=== PATIENT | female | born 1985 | race Caucasian/White ===

== ENCOUNTER 2017-12-26 19:00 | Emergency (ER) | payer BC, OTHER ==
--- NOTE | 2017-12-26 19:13 | PDOC ---
History of Present Illness - General History Source: Patient Exam Limitations: No Limitations - History of Present Illness Initial Comments: 12/26/17 19:44 The patient is a 32 year old female with a significant PMH of migraines who presents to the emergency department with a headache for 1 day. The patient reports that she went out for food and drinks last night and woke up this morning with a constant headache this morning. The patient reports that she has been experiencing associated nausea and vomiting with her headache. The patient states that she has been experiencing her vomiting episodes all day. The patient reports that she drank coffee this morning as well as advil. She reports that it provided no relief to her headache or vomiting. The patient reports the end of her menstrual cycle 1 week ago. The patient denies any sick contact. She denies any chest pain, shortness of breath, dizziness. She denies fever, chills, diarrhea, constipation or urinary symptoms. PAST MEDICAL HISTORY: migraines PAST SURGICAL HISTORY: no significant history FAMILY HISTORY: no pertinent history SOCIAL HISTORY: Pt lives with family and is employed. MEDICATIONS: reviewed ALLERGIES: As per nursing notes Adult ROS General: No fevers or chills, no weakness, no weight loss HEENT: No change in vision. No sore throat,. No ear pain CardioVascular: No chest pain or shortness of breath Respiratory:No cough, or wheezing. Gastrointestinal: (+) nausea, vomiting. no diarrhea or constipation, No rectal bleeding Genitourinary: No dysuria, hematuria, or frequency Musculoskeletal: No joint or muscle pain or swelling Neurologic: (+)headache. No vertigo, dizziness or loss of consciousness Psychiatric: nor depression Skin: No rashes or easy bruising Endocrine: no increased thirst or abnormal weight change Allergic: no skin or latex allergy All other systems reviewed and normal Basic PE General: Well-nourished well-developed individual, no acute distress HEENT: Throat: Normal, tonsils normal, no erythema or exudate Neck: Supple, no meningeal signs, no lymphadenopathy Eyes::Pupils equal reactive and round, extraocular motion intact Chest: Nontender to palpation Cardiac: S1-S2 normal, regular rate and rhythm, no murmurs rubs or gallops Respiratory: Lungs clear to auscultation bilateral Abdomen: Soft, nondistended, normal bowel sounds, nontender to palpation diffusely Extremities: Warm, dry, no cyanosis, clubbing, or edema Skin: No rashes Neuro: Alert and oriented x3, nonfocal exam, grossly intact, normal gait Psych: Normal mood and affect <Teri Guzman - Last Filed: 12/26/17 21:14> - General History Source: Patient Exam Limitations: No Limitations - History of Present Illness Initial Comments: A portion of this note was documented by scribe services under my direction. I have reviewed the details of the note, within reason, and agree with the documentation. The case summary and management plan written by me. Assessment and plan: This is a 32-year-old female who comes in complaining of a headache times one day. Patient is also complaining of vomiting. It is unclear whether the 2 are related or not. Patient has a history of migraines with which she had some nausea but not usually vomiting. Patient said this is different than her migraine headache. Patient did take Advil for the pain but said she was unable to keep it in and hasn't vomited. Patient otherwise denies any other recent illnesses including fevers. Patient denies any neck pain or neck stiffness. Patient's significant other is with her there is been change in her mental status. She denies any neurological complaints. CT scan of the head shows an increased density in the area of the upper brainstem. She should be re-evaluated with repeat CT or MRI to rule out pathology versus artifact. A repeat CAT scan of the head with IV contrast shows no abnormal enhancement in the area of the upper brainstem normal CAT scan Patient feels better post some pain medication and IV fluids and antiemetics. Patient discharged home will follow-up with her primary care doctor 12/26/17 23:32 <Jon Abrams I - Last Filed: 12/26/17 23:34> - General Chief Complaint: Headache Stated Complaint: HEADACHE Time Seen by Provider: 12/26/17 19:09 Past History <Teri Guzman - Last Filed: 12/26/17 21:14> - Past Medical History COPD: No HTN: Yes Other medical history: MIGRAINE HEADACHES - Suicide/Smoking/Psychosocial Hx Smoking History: Never smoked Information on smoking cessation initiated: No Hx Alcohol Use: (occasional) Substance Use Type: None <Jon Abrams I - Last Filed: 12/26/17 23:34> - Past Medical History Allergies/Adverse Reactions: Allergies Allergy/AdvReac Type Severity Reaction Status Date / Time metoclopramide [From Reglan] AdvReac agitation Verified 12/26/17 19:40 Home Medications: Ambulatory Orders Lisinopril 5 mg PO DAILY 12/26/17 *Physical Exam - Vital Signs Last Vital Signs Temp Pulse Resp BP Pulse Ox 99.1 F 102 H 20 146/107 100 12/26/17 19:00 12/26/17 19:00 12/26/17 19:00 12/26/17 19:00 12/26/17 19:00 <Teri Guzman - Last Filed: 12/26/17 21:14> - Vital Signs Last Vital Signs Temp Pulse Resp BP Pulse Ox 99.1 F 102 H 20 146/107 100 12/26/17 19:00 12/26/17 19:00 12/26/17 19:00 12/26/17 19:00 12/26/17 19:00 <Jon Abrams I - Last Filed: 12/26/17 23:34> ED Treatment Course - LABORATORY CBC & Chemistry Diagram: 12/26/17 19:35 12/26/17 19:35 - ADDITIONAL ORDERS Additional order review: Laboratory Results 12/26/17 19:20 Urine HCG, Qual Negative <Teri Guzman - Last Filed: 12/26/17 21:14> - LABORATORY CBC & Chemistry Diagram: 12/26/17 19:35 12/26/17 19:35 <Jon Abrams I - Last Filed: 12/26/17 23:34> *DC/Admit/Observation/Transfer - Attestations Scribe Attestion: 12/26/17 19:44 Documentation prepared by Teri Guzman, acting as medical laboratory technician for Jon Abrams MD. <Teri Guzman - Last Filed: 12/26/17 21:14> - Discharge Dispostion Decision to Admit order: No <Jon Abrams I - Last Filed: 12/26/17 23:34> Diagnosis at time of Disposition: Headache Qualifiers: Headache type: unspecified Headache chronicity pattern: acute headache Intractability: not intractable Qualified Code(s): R51 - Headache Vomiting Qualifiers: Vomiting type: unspecified Vomiting Intractability: non-intractable - Discharge Dispostion Disposition: HOME Condition at time of disposition: Stable - Patient Instructions Additional Instructions: Tylenol or Motrin as needed for pain. Return to the emergency department immediately with ANY new, persistent or worsening symptoms. Continue any medications as previously prescribed by your physician. You should follow up with your primary doctor as soon as possible regarding today's emergency department visit. . Please make sure your doctor reviews the results of your emergency evaluation. Thank you for coming to the Emergency Department today for your care. It was a pleasure to see you today. Please note that your evaluation is INCOMPLETE until you follow-up with your doctor.
[2017-12-26 19:14] VITALS: TEMP 99.1; BMI 28.3
[2017-12-26] MEDS ORDERED: METOCLOPRAMIDE HCL INJECTION 10 MG/2 ML VIAL IVPUSH ONE (19:19)
[2017-12-26] MEDS ORDERED: SODIUM CHLORIDE 1,000 ML IV ONE (19:21)
[2017-12-26] MEDS ORDERED: ONDANSETRON 4 MG/2 ML VIAL ONE (19:45)
[2017-12-26 19:56] LABS: BASO % 0.7 % (0-2.0); EOS % 0.2 % (0-4.5); HEMATOCRIT 37.3 % (32.4-45.2); LYMPH % 13.2 % (8-40); MCH 30.2 pg (25.7-33.7); MCHC 34.8 g/dl (32.0-36.0); MEAN CELL VOLUME 86.9 fl (80-96); MEAN PLT VOLUME 7.8 fl (7.5-11.1); MONO % 5.8 % (3.8-10.2); NEUT % 80.1 % (42.8-82.8); PLATELET COUNT 335 K/MM3 (134-434); RDW 12.1 % (11.6-15.6); WHITE BLOOD COUNT 9.6 K/mm3 (4.0-10.8)
[2017-12-26 20:04] LABS: ALBUMIN 4.3 g/dl (3.5-5.0); ALK PHOS 32 U/L (32-92); ANION GAP 8 (8-16); BILIRUBIN,TOTAL 0.2 mg/dl (0.2-1.0); BLOOD UREA NITROGEN 15 mg/dl (7-18); CALCIUM 9.8 mg/dl (8.4-10.2); CHLORIDE 100 mmol/L (98-107); CO2 26 mmol/L (22-28); CREATININE 0.6 mg/dl (0.6-1.3); GLUCOSE,RANDOM 132 mg/dl (74-106); POTASSIUM 3.5 mmol/L (3.5-5.1); SGOT/AST 18 U/L (10-42); SGPT/ALT 16 U/L (10-40); SODIUM 134 mmol/L (136-145); TOT PROT 7.4 g/dl (6.4-8.3)
[2017-12-26] MEDS ORDERED: ONDANSETRON 4 MG/2 ML VIAL IVPUSH ONE (20:09)
[2017-12-26 20:54] VITALS: BP 125/88; PULSE 87
[2017-12-26] MEDS ORDERED: morphine CARPU-JECT 4 MG/1 ML DISP.SYRIN IVPUSH ONE (21:07)
[2017-12-26] MEDS ORDERED: morphine SULFATE 4 MG/ML VIAL ONE (21:08)
[2017-12-26] MEDS ORDERED: KETOROLAC TROMETHAMINE 30 MG/1 ML VIAL IVPUSH ONE (21:14)
[2017-12-26] MEDS ORDERED: KETOROLAC TROMETHAMINE 30 MG/1 ML VIAL ONE (21:15)
== END 2017-12-26 23:37 | disposition home or self-care (01) ==
LOC: FER 19:00
PROC: 3E0333Z Introduction of Anti-inflammatory into Peripheral Vein, Percutaneous Approach (ICD-10-PCS; principal; 2017-12-26)
PROC: 3E033GC Introduction of Other Therapeutic Substance into Peripheral Vein, Percutaneous Approach (ICD-10-PCS; 2017-12-26)
PROC: 3E0337Z Introduction of Electrolytic and Water Balance Substance into Peripheral Vein, Percutaneous Approach (ICD-10-PCS; 2017-12-26)
DX: R51 Headache (principal); I10 Essential (primary) hypertension
CPT/HCPCS: 36415; 70450-TC; 70460-TC; 80053; 84703; 85025; 99283-25; J7030

== ENCOUNTER 2018-04-03 10:45 | Emergency (ER) | payer BC ==
--- NOTE | 2018-04-03 10:49 | PDOC ---
History of Present Illness - General Chief Complaint: Pain Stated Complaint: DIFFICULTY SWALLOWING 1 WEEK ALSO Time Seen by Provider: 04/03/18 10:49 - History of Present Illness Initial Comments: 04/03/18 11:55 The patient is a 32 year old female with a history of HTN who presents for evaluation of chest tightness and swallowing issues. The patient reports a 1 week history of a strange sensation when swallowing and increased urge to swallow that she describes as excess mucus in her throat. She also noted some intermittent upper chest tightness as well. She was evaluated by her primary care provider 2 days ago and was referred to an ENT specialist, but has been unable to schedule an appointment yet and states that she is feeling more anxious about the sensation in her throat. She notes that she does not have difficulty swallowing, hoarseness, foul breath and otherwise denies fevers, chills, SOB, nausea, vomiting, abdominal pain, or changes with urination or bowel movements. Past History - Past Medical History Allergies/Adverse Reactions: Allergies Allergy/AdvReac Type Severity Reaction Status Date / Time metoclopramide [From Reglan] AdvReac agitation Verified 04/03/18 10:56 Home Medications: Ambulatory Orders Lisinopril 5 mg PO DAILY 12/26/17 COPD: No HTN: Yes - Suicide/Smoking/Psychosocial Hx Smoking History: Never smoked Hx Alcohol Use: (occasional) Substance Use Type: None Review of Systems - Review of Systems Comments:: 04/03/18 11:59 Constitutional: No fevers, chills, fatigue, malaise HEENT: Swallowing issues. No Rhinorrhea, nasal congestion, visual changes Cardiovascular: Chest tightness. No syncope, palpitations, lightheadedness Respiratory: No Cough, SOB, Hemoptysis, Gastrointestinal: No Abdominal pain, Nausea, Vomiting, Constipation, Diarrhea, Melena Genitourinary: No Dysuria, Frequency, Urgency, Hesitancy, Hematuria, Flank pain Musculoskeletal: No Myalgia, arthralgia Skin: No rashes, itching, bruising, pallor Neurologic: No Headache, Dizziness, Numbness, Weakness, or Tingling Psychiatric: No Hallucinations. No SI or HI *Physical Exam - Physical Exam Comments: 04/03/18 12:00 General Appearance: Nourished. No Apparent Distress HEENT: No Pharyngeal Erythema, Tonsillar Exudate, Tonsillar Erythema Neck: No Cervical Lymphadenopathy Respiratory/Chest: Lungs Clear, Normal Breath Sounds. No Crackles, Rales, Rhonchi, Wheezing Cardiovascular: Regular Rhythm, Regular Rate. No Murmur, Gallops, Rubs Gastrointestinal/Abdominal: Normal Bowel Sounds, Soft. No Guarding, Rebound, Tenderness Musculoskeletal: No CVA Tenderness Extremity: Normal Capillary Refill Integumentary: Normal Color, Dry, Warm Neurologic: Fully Oriented, Alert, Normal Mood/Affect, Normal Response, Medical Decision Making - Medical Decision Making 04/03/18 12:01 The patient is a 32 year old female with a history of HTN who presents for evaluation of chest tightness and swallowing issues. Given the patient's history and physical exam, we will obtain plain films of the patient's chest and neck soft tissues to evaluate further. We will continue to monitor and reassess while here in the ED. 04/03/18 12:16 Plain films are unremarkable. The patient appears clinically well on exam. We are comfortable discharging the patient home with ENT follow up. We discussed the results, plan, and return precautions with the patient who voiced understanding and is agreeable with the plan. *DC/Admit/Observation/Transfer Diagnosis at time of Disposition: Difficulty swallowing Qualifiers: Dysphagia type: unspecified Qualified Code(s): R13.10 - Dysphagia, unspecified - Discharge Dispostion Disposition: HOME Condition at time of disposition: Stable Decision to Admit order: No - Referrals Referrals: Rosalio Rdz MD [Staff Physician] - - Patient Instructions Printed Discharge Instructions: Oropharyngeal Dysphagia Additional Instructions: Please return to the ER if you experience concerning or worsening symptoms including worsening difficulty breathing or chest pain. Your x-rays were normal here in the ER. Please call to schedule a follow up appointment with our ENT specialist within 1 week to discuss your ER visit and further management of your symptoms. We have also provided you with a list of ENT specialists that you may call as well. - Post Discharge Activity
[2018-04-03 10:56] VITALS: BP 138/98; PULSE 108; TEMP 99.1; BMI 29.2
--- NOTE | 2018-04-03 11:40 | PDOC ---
Attending Attestation - Resident Resident Name: Dario Vasquez - ED Attending Attestation I have performed the following: I have examined & evaluated the patient, The case was reviewed & discussed with the resident, I agree w/resident's findings & plan, Exceptions are as noted - HPI HPI: 32 yo F history anxiety, HTN presents with sensation of tightness in her throat , at the base of her neck, radiates to back. She describes it as feeling like there is mucus that is trapped in her throat, and she feels like she needs to drink a lot of water or swallow a lot to get it to go down. Denies voice changes , difficulty swallowing, regurgitation, bad breath. No recent fevers, chills. No recent illness. She has had a similar sensation with her anxiety in the past , but it was not prolonged like this. - Physicial Exam PE: GENERAL: Awake, alert, and fully oriented, in no acute distress HEAD: No signs of trauma EYES: PERRLA, EOMI, sclera anicteric, conjunctiva clear ENT: Auricles normal inspection, hearing grossly normal, nares patent, oropharynx clear without exudates. Moist mucosa NECK: Normal ROM, supple, no lymphadenopathy, JVD, or masses LUNGS: Breath sounds equal, clear to auscultation bilaterally. No wheezes, and no crackles HEART: Regular rate and rhythm, normal S1 and S2, no murmurs, rubs or gallops ABDOMEN: Soft, nontender, normoactive bowel sounds. No guarding, no rebound. No masses EXTREMITIES: Normal range of motion, no edema. No clubbing or cyanosis. No cords, erythema, or tenderness NEUROLOGICAL: Cranial nerves II through XII grossly intact. Normal speech, normal gait SKIN: Warm, Dry, normal turgor, no rashes or lesions noted. - Medical Decision Making Pt with patent oropharynx, no signs of airway obstruction. Tolerating PO. Would be best served by an outpatient ENT evaluation. She has an appointment but was requesting to see someone sooner than the appointment she has. Provided her with a list of providers which she can compare with her insurance coverage. Stable for [place] home.
== END 2018-04-03 12:30 | disposition home or self-care (01) ==
LOC: FER 10:45
DX: R13.10 Dysphagia, unspecified (principal); I10 Essential (primary) hypertension
CPT/HCPCS: 70360-TC-FY; 71046-TC-FY; 84703; 99282-25

== ENCOUNTER 2018-11-12 14:35 | Emergency (ER) | payer BC ==
[2018-11-12 14:44] VITALS: TEMP 98.8; BMI 29.2
[2018-11-12] MEDS ORDERED: SODIUM CHLORIDE 1,000 ML IV ONE (15:08)
[2018-11-12] MEDS ORDERED: ONDANSETRON 4 MG/2 ML VIAL IVPB ONE (15:08)
[2018-11-12] MEDS ORDERED: KETOROLAC TROMETHAMINE 30 MG/1 ML VIAL IVPUSH ONE (15:10)
--- NOTE | 2018-11-12 15:11 | PDOC ---
History of Present Illness - History of Present Illness Initial Comments: 11/12/18 15:29 The patient is a 32-year-old female with a past medical history significant for HTN and migraines presents to the emergency department with headache and vomiting. The patient reports she was out last night, with her friends, where she reports having multiple drinks. The patient states she woke up today with a bilateral frontal headache, thats pounding in nature. The patient reports the current symptoms are different from prior migraine flare-ups, which usually presents alongside with her menstrual cycle and is localized to one side of the head. The patient reports at 8:00 am, she took sumatriptan 100 mg, with some food, which she vomited up about an hour later. The patient reports taking another dose at 12:00 am, which she vomited up about 20 minutes later. The patient reports the symptoms are associated with mild photophobia, dizziness, weakness and unable to urinate secondary to difficulty keeping food or drinks down. Denies blurry vision, diplopia, neck pain, chest pain or abdominal pain. Denies diarrhea, fever, chills. Denies prior similar episodes. Allergies: metoclopramide. Social history: social alcohol use, former smoker. Denies the use of drugs. PCP: Dr. Basilio Crews. Neurologist: Dr. Reilly. <Constance Baer - Last Filed: 11/12/18 16:07> - General History Source: Patient Exam Limitations: No Limitations <Chandan High - Last Filed: 11/12/18 17:41> - General Chief Complaint: Headache Stated Complaint: HEADACHE, VOMITING Time Seen by Provider: 11/12/18 14:48 Past History <Constance Baer - Last Filed: 11/12/18 16:07> - Past Medical History COPD: No HTN: Yes Other medical history: MIGRAINE HEADACHES - Suicide/Smoking/Psychosocial Hx Smoking History: Never smoked Have you smoked in the past 12 months: No If you are a former smoker, when did you quit?: 9 YEARS Information on smoking cessation initiated: No Hx Alcohol Use: (social) Drug/Substance Use Hx: No Substance Use Type: None <Chandan High - Last Filed: 11/12/18 17:41> - Past Medical History Allergies/Adverse Reactions: Allergies Allergy/AdvReac Type Severity Reaction Status Date / Time metoclopramide [From Reglan] AdvReac agitation Verified 11/12/18 14:37 Home Medications: Ambulatory Orders Lisinopril 5 mg PO DAILY 12/26/17 Ondansetron [Zofran -] 4 mg PO TID PRN #14 tablet 11/12/18 Sumatriptan Succinate 100 mg PO ASDIR 11/12/18 Review of Systems - Review of Systems Able to Perform ROS?: Yes Comments:: 11/12/18 15:30 11/12/18 15:46 CONSTITUTIONAL: No reported: Fever, Chills, Diaphoresis, Malaise, Loss of Appetite HEENT: No reported: Rhinorrhea, Nasal Congestion, Throat Pain, Throat Swelling, Difficulty Swallowing, Mouth Swelling, Ear Pain, Eye Pain, Visual Changes CARDIOVASCULAR: No reported: Chest Pain, Syncope, Palpitations, Irregular Heart Rate, Lightheadedness, Peripheral Edema RESPIRATORY: No reported: Cough, Shortness of Breath, SOB with Exertion, Orthopnea, Wheezing , Stridor, Hemoptysis GASTROINTESTINAL: +vomiting. No reported: Abdominal pain, Abdominal Distension, Nausea, Diarrhea, Constipation, Melena, Hematochezia GENITOURINARY: No reported: Dysuria, Frequency, Urgency, Hesitancy, Flank Pain, Genital Pain MUSCULOSKELETAL: No reported: Myalgia, Arthralgia, Joint Swelling, Back pain, Neck Pain SKIN: No reported: Rash, Itching, Pallor NEUROLOGIC: +Headache. Dizziness, mild photophobia, and weakness. No reported: Focal Weakness, Paresthesias, Vertigo, Unsteady Gait, Seizure, Mental Status Changes. <Constance Baer - Last Filed: 11/12/18 16:07> *Physical Exam - Vital Signs Last Vital Signs Temp Pulse Resp BP Pulse Ox 98.8 F 114 H 20 135/101 H 99 11/12/18 14:35 11/12/18 14:35 11/12/18 14:35 11/12/18 14:35 11/12/18 14:35 <Constance Baer - Last Filed: 11/12/18 16:07> - Vital Signs Last Vital Signs Temp Pulse Resp BP Pulse Ox 98.8 F 114 H 20 135/101 H 99 11/12/18 14:35 11/12/18 14:35 11/12/18 14:35 11/12/18 14:35 11/12/18 14:35 - Physical Exam Comments: 11/12/18 15:14 GENERAL: The patient is awake, alert, and fully oriented, Nontoxic - in no acute distress. HEAD: Normocephalic, atraumatic. EYES: extraocular movements intact, sclera anicteric, conjunctiva clear. PEERL ENT: Normal voice, Moist mucous membranes. NECK: Normal range of motion, supple LUNGS: Breath sounds equal, clear to auscultation bilaterally. No wheezes, no rhonchi, no rales. HEART: Regular rate and rhythm, normal S1 and S2 without murmur, rub or gallop. ABDOMEN: Soft, nontender, normoactive bowel sounds. No guarding, no rebound. . No CVA tenderness EXTREMITIES: Normal range of motion, no edema. No clubbing or cyanosis. No cords, erythema, or tenderness. NEUROLOGICAL: No facial assymetry, Normal speech, symmetric sensation, motor 5/ 5 and symmetric in upper/ower extremities PSYCH: Normal mood, normal affect. SKIN: Warm, Dry, normal turgor, <Chandan High - Last Filed: 11/12/18 17:41> ED Treatment Course - LABORATORY CBC & Chemistry Diagram: 11/12/18 15:31 11/12/18 15:31 <Constance Baer - Last Filed: 11/12/18 16:07> - LABORATORY CBC & Chemistry Diagram: 11/12/18 15:31 11/12/18 15:31 <Chandan High - Last Filed: 11/12/18 17:41> Medical Decision Making - Medical Decision Making 11/12/18 15:11 32y F hx of migraines, htn presents with gradual onset of pounding b/l frontal headache this mornng after a night last night - she took triptans at onset without signivicant improvement, assoc with vomting, unable to tolerate anything by mouth. no assoc neck ai, fevers, cp, abd pain, diarrhea. mild dry mmm and tachcyardic on exam with normal neuro exam dd x migraine vs tension headache vs dehydration- will treat with fluids, zofran , toradol no red flags normal neuro exam will ck basic labs/preg will reassess A portion of this note was documented by scribe services under my direction. I have reviewed the details of the note, within reason, and agree with the documentation with the following case summary and management plan written by me 11/12/18 17:13 labs reviewed - unremarkable pt feeling improved will dc with pmd/neuro fu return precautions were discussed I discussed the physical exam findings, ancillary test results and final diagnoses with the patient. I answered all of the patient's questions. The patient was satisfied with the care received and felt comfortable with the discharge plan and treatment plan. The patient will call their primary care physician within 24 hours to arrange follow-up and will return to the Emergency Department with any new, persistent or worsening symptoms. 11/12/18 17:40 <Chandan High - Last Filed: 11/12/18 17:41> *DC/Admit/Observation/Transfer - Attestations Scribe Attestion: 11/12/18 16:07 Documentation prepared by Constance Baer, acting as medical physics researcher for Chandan High MD. <Constance Baer - Last Filed: 11/12/18 16:07> - Discharge Dispostion Decision to Admit order: No <Chandan High - Last Filed: 11/12/18 17:41> Diagnosis at time of Disposition: Headache Qualifiers: Headache type: tension-type Headache chronicity pattern: acute headache Intractability: not intractable Qualified Code(s): G44.209 - Tension-type headache, unspecified, not intractable - Discharge Dispostion Disposition: HOME Condition at time of disposition: Improved - Prescriptions Prescriptions: Ondansetron [Zofran -] 4 mg PO TID PRN #14 tablet PRN Reason: Nausea - Referrals Referrals: Jorge Crews MD [Primary Care Provider] - - Patient Instructions Printed Discharge Instructions: DI for Hormonal and Tension Headaches Additional Instructions: Return to the emergency department immediately with ANY new, persistent or worsening symptoms including worsening headache, vision changes, numbness/ tingling/weakness, persistent nausea and vomiting or any other concerns. Make sure you are getting adaqute sleep and hydration. You MUST call and follow up with your doctor tomorrow for further evaluation of your symptoms. Your emergency department visit is not complete without a followup with your doctor for reevaluation. Results were discussed with you. Please make sure your doctor reviews the results of your emergency evaluation. Print Language: ROMANIAN - Post Discharge Activity
[2018-11-12] MEDS ORDERED: ONDANSETRON 4 MG/2 ML VIAL ONE (15:33)
[2018-11-12] MEDS ORDERED: KETOROLAC TROMETHAMINE 30 MG/1 ML VIAL ONE (15:43)
[2018-11-12 15:48] LABS: BASO % 0.3 % (0-2.0); EOS % 0.2 % (0-4.5); HEMATOCRIT 38.9 % (32.4-45.2); HEMOGLOBIN 13.1 GM/dl (10.7-15.3); LYMPH % 9.8 % (8-40); MCH 29.7 pg (25.7-33.7); MCHC 33.7 g/dl (32.0-36.0); MEAN CELL VOLUME 88.2 fl (80-96); MEAN PLT VOLUME 8.5 fl (7.5-11.1); MONO % 4.4 % (3.8-10.2); NEUT % 85.3 % (42.8-82.8); PLATELET COUNT 288 K/MM3 (134-434); RBC 4.41 M/mm3 (3.60-5.2); RDW 12.4 % (11.6-15.6); WHITE BLOOD COUNT 9.4 K/mm3 (4.0-10.8)
[2018-11-12 15:56] LABS: ALBUMIN 4.6 g/dl (3.4-5.0); ALK PHOS 34 U/L (45-117); BILIRUBIN,TOTAL 0.7 mg/dl (0.2-1); BLOOD UREA NITROGEN 13 mg/dl (7-18); CREATININE 0.5 mg/dl (0.55-1.3); GLUCOSE,RANDOM 100 mg/dl (74-106); SGOT/AST 17 U/L (15-37); SGPT/ALT 16 U/L (13-61); TOT PROT 7.8 g/dl (6.4-8.2)
[2018-11-12 15:59] LABS: ANION GAP 10 MMOL/L (8-16); CALCIUM 9.2 mg/dl (8.5-10); CHLORIDE 102 mmol/L (98-107); CO2 25 mmol/L (21-32); POTASSIUM 3.6 mmol/L (3.5-5.1); SODIUM 137 mmol/L (136-145)
[2018-11-12 17:33] VITALS: BP 131/95; PULSE 97
== END 2018-11-12 17:45 | disposition home or self-care (01) ==
LOC: FER 14:35
PROC: 3E0333Z Introduction of Anti-inflammatory into Peripheral Vein, Percutaneous Approach (ICD-10-PCS; principal; 2018-11-12)
PROC: 3E033GC Introduction of Other Therapeutic Substance into Peripheral Vein, Percutaneous Approach (ICD-10-PCS; 2018-11-12)
PROC: 3E0337Z Introduction of Electrolytic and Water Balance Substance into Peripheral Vein, Percutaneous Approach (ICD-10-PCS; 2018-11-12)
DX: R51 Headache (principal); G44.209 Tension-type headache, unspecified, not intractable; I10 Essential (primary) hypertension
CPT/HCPCS: 36415; 80053; 84703; 85025; 99285-25; J7030

== ENCOUNTER 2019-08-23 18:31 | Emergency (ER) | payer BC ==
[2019-08-23 18:47] VITALS: BP 147/106; PULSE 94; TEMP 98.9; BMI 28.3
[2019-08-23] MEDS ORDERED: IBUPROFEN 600 MG TABLET (FP) PO ONE ×2 (19:14→19:19)
[2019-08-23] MEDS ORDERED: CYCLOBENZAPRINE HCL 10 MG TABLET (FP) PO ONE (19:15)
[2019-08-23] MEDS ORDERED: CYCLOBENZAPRINE HCL 10 MG TABLET (FP) ONE (19:19)
[2019-08-23 19:24] LABS: EPITHELIAL CELLS FEW /hpf
--- NOTE | 2019-08-23 20:08 | PDOC ---
Documentation entered by Constance Baer SCRIBE, acting as scribe for Jose Luis Cheung MD. Jose Luis Cheung MD: This documentation has been prepared by the viriibKeyur brown Lincy, SCRIBE, under my direction and personally reviewed by me in its entirety. I confirm that the documentation accurately reflects all work, treatment, procedures, and medical decision making performed by me. History of Present Illness - General Chief Complaint: Pain Stated Complaint: LEFT LOWER BACK PAIN FOR 5 DAYS Time Seen by Provider: 08/23/19 18:33 History Source: Patient Exam Limitations: No Limitations - History of Present Illness Initial Comments: 08/23/19 19:17 The patient is a 33-year-old female with a past medical history significant for HTN who presents to the emergency department with back pain. The patient presents with five days of left lower back pain radiating posteriorly down the left leg to the foot. The patient reports the pain hasnt worsened in severity since the presentation, reports mild relief with rubbing the back and standing straight. The patient states she did lift a heavy bag during grocery shopping, otherwise denies trauma. Denies accident. Denies urinary or bowel incontinence. Allergies: metoclopramide Social history: Former smoker, social use of alcohol. no reported use of recreational drugs. PCP: Dr. Basilio Crews. Review of system: CONSTITUTIONAL: Absent: fever, no chills, no fatigue EYES: Absent: visual changes ENT: Absent: ear pain, no sore throat CARDIOVASCULAR: Absent: chest pain, no palpitations RESPIRATORY: Absent: cough, no SOB GI: Absent: abdominal pain, no nausea, no vomiting, no constipation, no diarrhea GENITOURINARY: Absent: dysuria, no frequency, no hematuria MUSKULOSKELETAL: +left lower back pain. Absent: no arthralgia, no myalgia SKIN: Absent: rash NEURO: Absent: headache Physical exam: GENERAL: Well-appearing, well-nourished. No apparent distress. HEENT: Normocephalic, atraumatic. PERRL, EOM intact. CARDIOVASCULAR: Normal S1, S2. Regular rate and rhythm. PULMONARY: Clear to auscultation bilaterally. ABDOMEN: Soft, non-tender, no masses or organomegaly. No CVAT. EXTREMITIES: Normal ROM in all four extremities. No gross deformities. MSK: +straightening of the normal lumbar lordosis, paravertebral muscle spasm of the sacral spine, no point tenderness or deformities of the vertebral body. Straight leg raise negative, no distal, sensory or motor deficit. Full pulses. SKIN: Warm, dry. No rash NEUROLOGICAL: No focal neurological deficits. Past History - Past Medical History Allergies/Adverse Reactions: Allergies Allergy/AdvReac Type Severity Reaction Status Date / Time metoclopramide [From Reglan] AdvReac agitation Verified 08/23/19 18:33 Home Medications: Ambulatory Orders Lisinopril 5 mg PO DAILY 12/26/17 Cyclobenzaprine HCl [Flexeril -] 10 mg PO TID #15 tablet 08/23/19 Diclofenac Sodium 75 mg PO BID #10 tablet. 08/23/19 COPD: No HTN: Yes - Psycho Social/Smoking Cessation Hx Smoking History: Never smoked Have you smoked in the past 12 months: No If you are a former smoker, when did you quit?: 9 YEARS Information on smoking cessation initiated: No Hx Alcohol Use: Yes (SOCIAL) Drug/Substance Use Hx: No Substance Use Type: None *Physical Exam - Vital Signs Last Vital Signs Temp Pulse Resp BP Pulse Ox 98.9 F 94 H 16 147/106 H 100 08/23/19 18:32 08/23/19 18:32 08/23/19 18:32 08/23/19 18:32 08/23/19 18:32 ED Treatment Course - ADDITIONAL ORDERS Additional order review: Laboratory Results 08/23/19 18:40 Urine Color Yellow Urine Appearance Slightly Urine pH 5.5 Urine Protein Negative Urine Glucose (UA) Negative Urine Ketones Negative Urine Blood Negative Urine Nitrite Negative Urine Bilirubin Negative Urine Urobilinogen 0.2 Ur Leukocyte Esterase 3+ Medical Decision Making - Medical Decision Making 08/23/19 20:06 Left sacral pain for several days. No known injury. Pain is worse when lying or sitting, feels better standing and walking. Examination shows mild paravertebral spasm loss of normal lumbar lordosis negative for radicular signs Completely ambulatory without difficulty. Symptomatic treatment, medication, and follow-up as directed. Discharge - Discharge Information Problems reviewed: Yes Clinical Impression/Diagnosis: Low back strain Qualifiers: Encounter type: initial encounter Qualified Code(s): S39.012A - Strain of muscle, fascia and tendon of lower back, initial encounter Condition: Stable Disposition: HOME - Admission No - Additional Discharge Information Prescriptions: Cyclobenzaprine HCl [Flexeril -] 10 mg PO TID #15 tablet Diclofenac Sodium 75 mg PO BID #10 tablet.dr - Follow up/Referral Referrals: Mayank Shaw MD [Staff Physician] - 1 week - Patient Discharge Instructions Patient Printed Discharge Instructions: DI for Low Back Pain Additional Instructions: Rest, heat, medication as directed Avoid the sitting position, especially prolonged periods of time in a chair or riding in a car. If no improvement in 1 week, see revenue cycle specialist for further evaluation and treatment. If symptoms worsen, return to emergency room for further evaluation - Post Discharge Activity
== END 2019-08-23 19:30 | disposition home or self-care (01) ==
LOC: FER 18:31
DX: S39.012A Strain of muscle, fascia and tendon of lower back, initial encounter (principal); I10 Essential (primary) hypertension; Z87.891 Personal history of nicotine dependence
CPT/HCPCS: 81003; 81015; 84703; 99282-25